=== PATIENT | female | born 2005 | race African-American/Black ===

== ENCOUNTER 2025-04-20 12:57 | Emergency (ER) | payer BC, SELFPAY ==
[2025-04-20] VITALS (7 sets, daily range): BP systolic 120–125; BP diastolic 68–72; PULSE 53–108; RESP 16–20; TEMP 36.4; O2SAT 98–100
--- NOTE | ~2025-04-20 | US_ITS ---
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 Findings: Uterus anteverted 12.6 x 7.8 x 7.9 cm. Single live intrauterine in breech presentation, heart rate 159, the fetus corresponds to crown-rump length 5.5 cm, 12 weeks and 1 day. Placenta is forming posteriorly, there is no gross abruption. The placenta appears unremarkable. Right ovary 2.9 x 1 x 2.3 cm, left ovary 4.2 x 2.2 x 2.6 cm. No adnexal mass. No free fluid IMPRESSION: Single live intrauterine detailed above. No acute process is identified. Reviewed, dictated and finalized at location P. [facility]
--- OUTSIDE RECORDS SUMMARY | 2025-04-20 13:13 | XMS_ITS | Clinical Summary ---
Author Organization [facility] Address [address] [place] [address] Care Team Providers Care Ichthyologist Name Role Phone No, Physician Primary Care Provider [phone] Allergies No known active allergies Active Problems Problem Noted Date Diagnosed Date Bleeding in early 12/17/2023 Overview (12/25/2023): Telephone Number Vitor Mccraymagayathri Fox [phone] (home) Home Yes [] PUL Card Given Working Diagnosis: possible early SAB Date presented: 12/19/23 Brief HPI: 18 y.o. at unknown gestational age presents with spotting. +home UPT, neg UPT in [facility]. Hcg 38.1 on 12/14. Patient reports passing the on the evening of 12/16. Ultrasound: none performed 12/14: Initial presentation, 38.1 12/16: Called pt, endorses heavy VB, will present to [facility] 12/18: Pt states that she felt like she passed the on the evening on 12/16. Still having some VB. States that she does not have insurance and does not want to get a quant done because of this. Wants to be setup with f/u with [facility] to establish care. Have referred to medicaid specialist. 12/19: left VM, informed pt to take home upt next week and discussed her referrals 12/23: left VM, my chart messaged 12/24: left VM, sending certified letter, signing out of bb per attending Rh Status: A Positive [] Rhogam Given Beta Trend: Lab Results Component Value Date HCG 38.1 (H) 12/15/2023 PLAN Next beta due: home upt 12/23 Contraception: NA Does the patient have insurance? If not, make clinic appointment for [place] medicaid specialist OR refer to [place] medicaid office. [x] Signed out with attending and okay to remove from beta book. Attending Name: Julius Comments Yes Encounters Date Type Department Care Team Description 03/13/2025 Documentation [facility] Social Work [address] [place] [id number] Luiz Barryra 03/12/2025 7:51 AM CDT - 03/12/2025 12:16 PM CDT Emergency [address] [address] Bacterial vaginosis (Primary Dx); Trichomonas vaginitis; Vaginal candidiasis; Bleeding in early Discharge Disposition: Discharge to home or self care 03/09/2025 5:10 PM CDT Lab [facility] [address] [place] [id number] Threatened miscarriage in early 03/07/2025 10:14 AM CDT - 03/07/2025 1:50 PM CDT Emergency [address] [address] Vaginal bleeding in , first trimester (Primary Dx); Threatened miscarriage in early ; Subchorionic hemorrhage of placenta in first trimester Discharge Disposition: Discharge to home or self care from Last 3 Months Social History Tobacco Use Types Packs/Day Years Used Date Smoking Tobacco: Never Assessed Personal Safety Answer Date Recorded Have you ever been in or are you currently in a harmful physical or emotional relationship or is someone making you feel afraid or unsafe? Denies 03/12/2025 Comments Yes Sex and Gender Information Value Date Recorded Sex Assigned at Not on file Legal Sex Female 7:35 PM CDT Gender Identity Not on file Sexual Orientation Not on file Obstetrics History Para Term AB IAB SAB Ectopic Multiple Livin g Live Births 2 Date Outcome GA Total Labor Labor/2nd/3rd Weight Sex Type Anes PTL Linda A1 A5 Name Clin Current Last Filed Vital Signs Vital Sign Reading Time Taken Comments Blood Pressure 128/67 03/12/2025 12:00 PM CDT Pulse 78 03/12/2025 12:00 PM CDT Temperature 36.6 C (97.9 F) 03/12/2025 7:31 AM CDT Respiratory Rate 18 03/12/2025 12:00 PM CDT Oxygen Saturation 100% 03/12/2025 12:00 PM CDT Inhaled Oxygen Concentration - - Weight 94 kg (207 lb 3.7 oz) 03/12/2025 7:37 AM CDT Height 165.1 cm (5' 5) 03/12/2025 7:31 AM CDT Body Mass Index 34.49 03/12/2025 7:31 AM CDT Plan of Treatment Health Maintenance Due Date Last Done Comments Depression Screening 2004 Hepatitis C Screening 2004 DTaP/Tdap/Td Vaccine (1 - Tdap) 10/06/2015 Varicella Vaccines (1 of 2 - 13+ 2-dose series) 2017 HPV Vaccines (1 - 3-dose series) 10/06/2019 Meningococcal B Vaccine (1 o f 2 - Standard) 2020 Hepatitis B Screening 2022 Regular Well Visit/Exam 18-64 2022 Influenza Vaccine (#1) 2025 Meningococcal Vaccine Aged Out No nickie elvira eligible based on patient's age to complete this topic Pneumococcal vaccine <65 Aged Out No longer eligible based on patient's age to complete this topic Procedures Procedure Name Priority Date/Time Associated Diagnosis Comments N. GONORRHOEAE/C. TRACHOMATIS AMPLIFICATION STAT 03/12/2025 9:40 AM CDT VAGINITIS PANEL Routine 03/12/2025 9:40 AM CDT POCT HCG, URINE Routine 03/12/2025 7:54 AM CDT URINALYSIS, MICROSCOPIC ONLY STAT 03/12/2025 7:53 AM CDT URINALYSIS AND REFLEX TO MICROSCOPIC AND CULTURE STAT 03/12/2025 7:53 AM CDT EGFR STAT 03/12/2025 7:47 AM CDT DIFFERENTIAL AUTO STAT 03/12/2025 7:4 7 AM CDT COMPREHENSIVE METABOLIC PANEL STAT 03/12/2025 7:47 AM CDT ABO/RH STAT 03/12/2025 7:47 AM CDT HCG, BLOOD, QUANTITATIVE STAT 03/12/2025 7:47 AM CDT CBC WITH AUTO DIFFERENTIAL STAT 03/12/2025 7:47 AM CDT HCG, BLOOD, QUANTITATIVE Routine 03/09/2025 5:43 PM CDT Threatened miscarriage in early US OB TRANSVAGINAL ED 03/07/2025 12 :49 PM CDT B ABO / RH CONFIRMATION TESTING STAT 03/07/2025 11:12 AM CDT URINALYSIS, MICROSCOPIC ONLY STAT 03/07/2025 10:51 AM CDT URINE CULTURE STAT 03/07/2025 10:51 AM CDT URINALYSIS AND REFLEX TO MICROSCOPIC AND CULTURE STAT 03/07/2025 10:51 AM CDT EGFR STAT 03/07/2025 10:06 AM CDT DIFFERENTIAL AUTO STAT 03/07/2025 10: 06 AM CDT ABO/RH STAT 03/07/2025 10:06 AM CDT HCG, BLOOD, QUANTITATIVE STAT 03/07/2025 10:06 AM CDT CBC WITH AUTO DIFFERENTIAL STAT 03/07/2025 10:06 AM CDT COMPREHENSIVE METABOLIC PANEL STAT 03/07/2025 10:06 AM CDT from Last 3 Months Results * N. gonorrhoeae/C. trachomatis Amplification Vaginal (03/12/2025 9:40 AM CDT) Pathologist [facility] C. trachomatis Not Detected Not Detected N. gonorrhoeae Not Detected Not Detected [facility] Comment: Interpretive Data This assay detects Chlamydia trachomatis and Neisseria gonorrhoeae by nucleic acid amplification testing (NAAT). This assay has been cleared by the [place] Food and Drug administration. The performance characteristics of this test have been verified by the [facility]. The performance characteristics of this test have not been evaluated in individuals less than 14 years of age. Current Interpretive Data last revised 2023. Vaginal (None) 03/12/2025 9: 40 AM CDT 03/12/2025 9:42 AM CDT Janny VU LAB MICROBIOLOGY - GENERAL OR DERABLES Final Result [facility] [address] [facility] Department [place] [address] * (ABNORMAL) Vaginitis panel Vaginal (03/12/2025 9:40 AM CDT) Pathologist [facility] Bacterial Vaginosis Detected(A) Not Detected Comment:The BV organism targ ets of this test can be commensal in women; results should be considered in conjunction with clinical presentation to determine the disease status. Cheryl group Detected(A) Not Detected [facility] Comment:Cheryl species can be present as commensal organisms in women; results should be considered in conjunction with clinical presentation to determine the disease status. Cheryl glabrata/ krusei Not Detected Not Detected [facility] Trichomonas DNA Detected(A) Not Detected [facility] Vaginal 03/12/2025 9:40 AM CDT 03/12/2025 9:42 AM CDT Narrative [facility] - 03/12/2025 10:47 AM CDT The [employer] Xpert Xpress MVP test detects DNA targets from anaerobic bacteria associated with bacterial vaginosis, Cheryl species associated with vulvovaginal candidiasis, and Trichomonas vaginalis by nucleic acid amplification testing (NAAT). Results should be interpreted in conjunction with other clinical data. This test cannot be used to assess therapeutic success or failure because target nucleic acids may persist following antimicrobial therapy. This test has been cleared by the [place] Food and Drug Administration to aid in the diagnosis of vaginal infections in symptomatic women ages 14 and older. The performance characteristics of this test have been verified by the [facility]. The [employer] Xpert Xpress MVP test detects DNA targets from anaerobic bacteria associated with bacterial vaginosis, Cheryl species associated with vulvovaginal candidiasis, and Trichomonas vaginalis by nucleic acid amplification testing (NAAT). Results should be interpreted in conjunction with other clinical data. This test cannot be used to assess therapeutic success or failure because target nucleic acids may persist following antimicrobial therapy. This test has been cleared by the [facility] Food and Drug Administration to aid in the diagnosis of vaginal infections in symptomatic women ages 14 and older. The performance characteristics of this test have been verified by the [facility]. Janny VU LAB MICROBIOLOGY - GENERAL OR DERABLES Final Result [facility] [address] [facility] Department [place] [address] * (ABNORMAL) POCT hCG, urine (03/12/2025 7:54 AM CDT) HCG, ur, POC Positive(A) Negative Lot Number [id number] QC Backgroud Clear Acceptable QC Control Line Acceptable Urine 03/12/2025 7:54 AM CDT Ariel Gao DO POINT OF CARE TEST ORDERABL ES Final Result * (ABNORMAL) Urinalysis reflex to microscopic and culture Urine (03/12/2025 7:53 AM CDT) Color, ur Yellow Yellow Clarity, ur Clear Clear [facility] Specific gravity, ur 1.014 1.003 - 1.030 [facility] pH, urine 7.5 [facility] Comment: Interpretive Data U rine pH is affected by diet, medications, systemic acid-base disturbances, and renal tubular function. pH may affect urinary stone formation. For example, urine pH below 6.0 may help reduce the tendency for calcium phosphate stones and pH greater than 6.0 may reduce the tendency for uric acid stone formation. Source: [facility] Current Interpretive Data was last revised on 2017 Protein, ur ql Negative Negative [facility] Glucose, ur ql Negative Negative [facility] Ketones, ur Negative Negative [facility] Bilirubin, ur Negative Negative [facility] Blood, ur 2+(A) Negative [facility] Urobilinogen, ur <2.0 <2.0 mg/dL [facility] Nitrite, ur Negative Negative [facility] Leukocyte esterase, ur 2+(A) Negative [facility] UA reflex comment Reflex to microscopic UA will be performed. [facility] Urine 03/12/2025 7:53 AM CDT 03/12/2025 7:57 AM CDT Ariel Gao DO LAB MICROBIOLOGY - GENERAL ORDERABLES Final Result Performing Organization Address [facility] Co de Phone Number [address] [place] [address] * Urinalysis, microscopic only (03/12/2025 7:53 AM CDT) WBC, ur 0-5 0 - 5 /HPF RBC, ur 0-2 0 - 2 /HPF [facility] Epithelial cells, squamous, ur 1-5 0 - 5 /HPF [facility] Culture Reflex Comment Reflex conditions for urine culture (WBC >10) not met. [facility] Urine 03/12/2025 7:53 AM CDT 03/12/2025 7:57 AM CDT Ariel Gao DO LAB URINE ORDERABLES Final Result Performing Organization Address City/[facility] Co de Phone Number [address] [place] [address] * eGFR (03/12/2025 7:47 AM CDT) eGFR >90 >=60 mL/min/1. 73 m2 Comment: Interpretive Data Reference Interval Normal >/= 90 mL/min/1.73m2 Mildly decreased* 60 - 89 mL/min/1.73m2 Mildly to moderately decreased 45 - 59 mL/min/1.73m2 Moderately to severely decreased 30 - 44 mL/min/1.73m2 Severely decreased 15 - 29 mL/min/1.73m2 Kidney Failure < 15 mL/min/1.73m2 *Relative to young adult level Estimated glomerular filtration rate is determined by the 2020 CKD-EPI equation recommended by the National Kidney Foundation (A Unifying Approach to GFR Estimation: Recommendations of the NKF-ASK Task Force on Reassessing the Inclusion of Race in Diagnosing Kidney Disease, JASN 2020). The CKD-EPI equation should not be used for patients with unstable renal function and has not been validated in children and those over 70. Current interpretive data was last reviewed 2021. Blood 03/12/2025 7:47 AM CDT 03/12/2025 7:51 AM CDT us Ariel Gao DO LAB BLOOD ORDERABLES Final Result [facility] [address] [facility] Department of Laboratories [place], [place] [id number] * Differential, auto (03/12/2025 7:47 AM CDT) Neutrophil abs 4.60 1.50 - 6.50 K/cumm Imm gran abs 0.03 0.00 - 0.10 K/cumm [facility] Lymphocyte abs 2.96 0.80 - 3.30 K/cumm [facility] Monocyte abs 0.48 0.20 - 0.80 K/cumm [facility] Eosinophil abs 0.09 0.00 - 0.50 K/cumm [facility] Basophil abs 0.05 0.00 - 0.10 K/cumm [facility] Neutrophil pct 56.0 % [facility] Comment: Interpretive Data Percent cell count reference ranges are not reported, since discordance with absolute values may lead to misinterpretation of CBC data. Current Interpretive Data was last revised on 2017. Imm gran pct 0.4 % [facility] Comment: Interpretive Data Percent cell count reference ranges are not reported, since discordance with absolute values may lead to misinterpretation of CBC data. Current Interpretive Data was last revised on 2017. Lymphocyte pct 36.1 % [facility] Comment: Interpretive Data Percent cell count reference ranges are not reported, since discordance with absolute values may lead to misinterpretation of CBC data. Current Interpretive Data was last revised on 2017. Monocyte pct 5.8 % [facility] Comment: Interpretive Data Percent cell count reference ranges are not reported, since discordance with absolute values may lead to misinterpretation of CBC data. Current Interpretive Data was last revised on 2017. Eosinophil pct 1.1 % [facility] Comment: Interpretive Data Percent cell count reference ranges are not reported, since discordance with absolute values may lead to misinterpretation of CBC data. Current Interpretive Data was last revised on 2017. Basophil pct 0.6 % [facility] Comment: Interpretive Data Percent cell count reference ranges are not reported, since discordance with absolute values may lead to misinterpretation of CBC data. Current Interpretive Data was last revised on 2017. Blood 03/12/2025 7:47 AM CDT 03/12/2025 7:51 AM CDT us Ariel Gao DO LAB BLOOD ORDERABLES Final Result [place] [address] [facility] Department [place] [address] * CBC with auto differential (03/12/2025 7:47 AM CDT) WBC 8.21 3.80 - 9.90 K/cumm Hgb 12.3 11.9 - 15.5 g/dL [facility] Hct 37.7 35.6 - 45.5 % [facility] Plt 218 150 - 400 K/cumm [facility] MPV 11.9 9.1 - 12.3 fL [facility] RBC 4.08 3.90 - 5.20 M/cumm [facility] MCV 92.4 81.3 - 96.4 fL [facility] MCH 30.1 27.1 - 33.3 pg [facility] MCHC 32.6 32.3 - 35.7 g/dL [facility] RDW CV 13.1 11.1 - 14.9 % [facility] RDW SD 44.3 35.7 - 48.1 fL [facility] NRBC abs 0.00 0.00 - 0.01 K/cumm [facility] Blood Venous blood specimen / Unknown 03/12/2025 7:47 AM CDT 03/12/2025 7:51 AM CDT Ariel Gao [facility] BLOOD ORDERABLES Final Result Performing Organization Address [facility] de Phone Number [address] [place] [address] * ABO/Rh (03/12/2025 7:47 AM CDT) ABO/Rh A Positive Blood 03/12/2025 7:47 AM CDT 03/12/2025 7:51 AM CDT Ariel Gao [facility] BLOOD BANK TEST ORDERAB LES Final Result Performing Organization Address [facility] de Phone Number [address] [address] * (ABNORMAL) hCG, blood, quantitative (03/12/2025 7:47 AM CDT) Pathologist [facility] hCG, quant 38,305.0( H) 0.0 - 5.0 [facility]/L Comment: Interpretive Data Male: < 5 IU/L Non- premenopausal Female: <5 IU/L The Manny hCG Beta Quant assay procedure was used. Results from different manufacturers or methods may not be comparable. Serial testing should be performed using the same method. Interpretive Data was last revised on 2023 Blood 03/12/2025 7:47 AM CDT 03/12/2025 7:51 AM CDT Ariel Gao [facility] BLOOD ORDERABLES Final Result Performing Organization Address [facility] Co de Phone Number [address] [place] [address] * (ABNORMAL) Comprehensive metabolic panel (03/12/2025 7:47 AM CDT) Pathologist [facility] Sodium 135 135 - 145 mmol/L Potassium, pl 3.7 3.3 - 4.9 mmol/L [facility] Chloride 105 97 - 110 mmol/L [facility] CO2 22 22 - 32 mmol/L [facility] Anion gap 8 2 - 15 mmol/L [facility] BUN 7 6 - 25 mg/dL [facility] Creatinine 0.59(L) 0.60 - 1.10 mg/dL [facility] Glucose 96 70 - 199 mg/dL [facility] Comment: Interpretive Data Fasting glucose >/= 126 mg/dl is diagnostic for diabetes. Fasting is defined as no caloric intake for at least 8 hours. Fasting glucose between 100 mg/dl to 125 mg/dl is diagnostic of prediabetes. In a patient with classic symptoms of hyperglycemia or hyperglycemic crisis, a random glucose >/= 200 mg/dl is diagnostic for diabetes. In the absence of unequivocal hyperglycemia, results should be confirmed by repeat testing. The classification and Diagnosis of Diabetes Diabetes Care 2021; 46: S19-S40. Current interpretive data was last revised 2022. Calcium 8.6 8.5 - 10.3 mg/dL [facility] Bilirubin, total 0.4 0.1 - 1.2 mg/dL [facility] Protein, pl 6.4(L) 6.5 - 8.5 g/dL [facility] Albumin 4.0 3.5 - 5.0 g/dL [facility] Alk phos 58 40 - 130 Units/L [facility] ALT 16 7 - 45 Units/L [facility] AST 21 10 - 45 Units/L [facility] Blood 03/12/2025 7:47 AM CDT 03/12/2025 7:51 AM CDT us Ariel Gao DO LAB BLOOD ORDERABLES Final Result [facility] [address] [facility] Department [place] [address] * (ABNORMAL) hCG, blood, quantitative (03/09/2025 5:43 PM CDT) Pathologist [facility] hCG, quant 25,930.0( H) 0.0 - 5.0 [facility] Comment: Interpretive Data Male: < 5 IU/L Non- premenopausal Female: <5 IU/L The [employer]anny hCG Beta Quant assay procedure was used. Results from different manufacturers or methods may not be comparable. Serial testing should be performed using the same method. Interpretive Data was last revised on 2023 Testing performed by: [facility], [address] [place] [address]., [id number] Blood 03/09/2025 5:43 PM CDT 03/09/2025 6:19 PM CDT us Kandy VU LAB BLOOD ORDERABLES Final Resu lt [facility] [address] [facility] Department [place] [address] * US Ob Transvaginal (03/07/2025 12:49 PM CDT) Anatomical Region Laterality Modality Abdomen N/A Ultrasound 03/07/2025 12:5 0 PM CDT Narrative 03/07/2025 12:57 PM CDT EXAM DESCRIPTION: US OB TRANSVAGINAL REASON FOR STUDY: Light vaginal bleeding for 1 day. Beta HCG 16,265 TECHNIQUE: Transvaginal images acquired of the pelvis. COMPARISON: No prior. FINDINGS: Clinical gestational age: 5 weeks 3 days Clinical estimated Due Date: 11/04/2025 Intrauterine gestational sac: Present Yolk sac: Present Subchorionic bleed: Possible small subchorionic hemorrhage. See image 50 of 54 and adjacent images. This measures 0.8 x 0.6 x 0.5 cm. Placenta: Not identified [place]-rump length: Small crown-rump length measuring 0.3 cm. heart rate: 93 bpm Gestational age by this ultrasound: 5 weeks 6 days JOEY by this ultrasound: 11/01/2025 Uterus: Maternal uterus otherwise appears normal measuring 8.8 x 5.4 x 4.3 cm. Right Ovary/Adnexa: The right ovary measures 3.4 x 1.8 x 1.2 cm. There is documentation of color Doppler flow in the right ovary. The right ovary appears unremarkable. No adnexal mass. Left Ovary/Adnexa: The left ovary measures 3.1 x 2 x 1.8 cm. There is documentation of color Doppler flow in the left ovary. Corpus luteum cyst favored measuring 1.7 x 1.3 x 1.3 cm. Free Fluid: None. IMPRESSION: 1. Early intrauterine measuring 5 weeks 6 days with estimated date of delivery of 11/01/2025. 2. Small subchorionic hemorrhage measuring 0.8 x 0.6 x 0.5 cm. Follow-up ultrasound is recommended in 1 week. THIS IS AN ELECTRONICALLY VERIFIED FINAL REPORT 03/07/2025 12:57 PM - Electronically signed by John COLIN T: Report ID: [id number] Reading Location: [place] [address] Procedure Note John Herrera MD - 03/07/2025 EXAM DESCRIPTION: US OB TRANSVAGINAL REASON FOR STUDY: Light vaginal bleeding for 1 day. Beta HCG 16,265 TECHNIQUE: Transvaginal images acquired of the pelvis. COMPARISON: No prior. FINDINGS: Clinical gestational age: 5 weeks 3 days Clinical estimated Due Date: 11/04/2025 Intrauterine gestational sac: Present Yolk sac: Present Subchorionic bleed: Possible small subchorionic hemorrhage. See image50 of 54 and adjacent images. This measures 0.8 x 0.6 x 0.5 cm. Placenta: Not identified [place]-rump length: Small crown-rump length measuring 0.3 cm. heart rate: 93 bpm Gestational age by this ultrasound: 5 weeks 6 days JOEY by this ultrasound: 11/01/2025 Uterus: Maternal uterus otherwise appears normal measuring 8.8 x 5.4 x 4.3cm. Right Ovary/Adnexa: The right ovary measures 3.4 x 1.8 x 1.2 cm. Thereis documentation of color Doppler flow in the right ovary. The right ovary appears unremarkable. No adnexal mass. Left Ovary/Adnexa: The left ovary measures 3.1 x 2 x 1.8 cm. There is documentation of color Doppler flow in the left ovary. Corpus luteum cyst favored measuring 1.7 x 1.3 x 1.3 cm. Free Fluid: None. IMPRESSION: 1. Early intrauterine measuring 5 weeks 6 days with estimateddate of delivery of 11/01/2025. 2. Small subchorionic hemorrhage measuring 0.8 x 0.6 x 0.5 cm.Follow-up ultrasound is recommended in 1 week. THIS IS AN ELECTRONICALLY VERIFIED FINAL REPORT 03/07/2025 12:57 PM - Electronically signed by John COLIN T: Report ID: [id number] Reading Location: [place] [address] Kandy VU IMG OB US PROCEDURES Final Resu lt * ABO / Rh Confirmation Testing (03/07/2025 11:12 AM CDT) ABO/Rh Confirmation A Positive [facility] Blood 03/07/2025 11:1 2 AM CDT 03/07/2025 11:16 AM CDT Kandy VU LAB BLOOD ORDERABLES Final Resu lt [facility] [address] [facility] Department [place] [address] MHB * (ABNORMAL) Urinalysis reflex to microscopic and culture Urine (03/07/2025 10:51 AM CDT) Color, ur Straw Yellow Clarity, ur Clear Clear [facility] Specific gravity, ur 1.005 1.003 - 1.030 [facility] pH, urine 6.5 [facility] Comment: Interpretive Data U rine pH is affected by diet, medications, systemic acid-base disturbances, and renal tubular function. pH may affect urinary stone formation. For example, urine pH below 6.0 may help reduce the tendency for calcium phosphate stones and pH greater than 6.0 may reduce the tendency for uric acid stone formation. Source: [facility] [employer] Current Interpretive Data was last revised on 2017 Protein, ur ql Negative Negative [facility] Glucose, ur ql Negative Negative [facility] Ketones, ur Negative Negative [facility] Bilirubin, ur Negative Negative [facility] Blood, ur Negative Negative [facility] Urobilinogen, ur <2.0 <2.0 mg/dL [facility] Nitrite, ur Negative Negative [facility] Leukocyte esterase, ur 2+(A) Negative [facility] UA reflex comment Reflex to microscopic UA will be performed. [facility] Urine 03/07/2025 10:5 1 AM CDT 03/07/2025 10:56 AM CDT Kandy VU LAB MICROBIOLOGY - GENERAL ORDE RABLES Final Result Performing Organization Address [facility] de Phone Number [address] [place] [address] * (ABNORMAL) Urinalysis, microscopic only (03/07/2025 10:51 AM CDT) WBC, ur 11-20(A) 0 - 5 /HPF RBC, ur 0-2 0 - 2 /HPF [facility] Epithelial cells, squamous, ur 1-5 0 - 5 /HPF [facility] Bacteria, ur Trace(A) [facility] Mucous, ur Present(A) [facility] Culture Reflex Comment Reflex to urine culture will be performed. [facility] Urine 03/07/2025 10:5 1 AM CDT 03/07/2025 10:56 AM CDT Kandy [facility] LAB URINE ORDERABLES Final Resu lt Performing Organization Address City/[facility] Co de Phone Number [address] [place] [address] * Urine culture Urine (03/07/2025 10:51 AM CDT) Report Final Report: Less than 100,000 colonies/mL (clinically insignificant growth based on current clinical standards) Comment:Testing performed by : [facility], [address] [facility], [place]., [address] Organism (CLINICALLY INSIGNIFICANT GROWTH [facility] Urine 03/07/2025 10:5 1 AM CDT 03/07/2025 6:19 PM CDT Narrative TIFFANY - 03/08/2025 7:25 PM CDT Urine culture reflexed based upon urinalysis results. Testing performed by [facility] Microbiology Laboratory ([phone]) [facility] MICROBIOLOGY - GENERAL ORDE RABLES Final Result Performing Organization Address City/[facility]/ZIP Co de Phone Number [address] [place] [address] * eGFR (03/07/2025 10:06 AM CDT) Pathologist [facility] eGFR >90 >=60 mL/min/1. 73 m2 Comment: Interpretive Data Reference Interval Normal >/= 90 mL/min/1.73m2 Mildly decreased* 60 - 89 mL/min/1.73m2 Mildly to moderately decreased 45 - 59 mL/min/1.73m2 Moderately to severely decreased 30 - 44 mL/min/1.73m2 Severely decreased 15 - 29 mL/min/1.73m2 Kidney Failure < 15 mL/min/1.73m2 *Relative to young adult level Estimated glomerular filtration rate is determined by the 2020 CKD-EPI equation recommended by the National Kid[employer] (A Unifying Approach to GFR Estimation: Recommendations of the NKF-ASK Task Force on Reassessing the Inclusion of Race in Diagnosing Kidney Disease, JASN 202). The CKD-EPI equation should not be used for patients with unstable renal function and has not been validated in children and those over 70. Current interpretive data was last reviewed 2021. Blood 03/07/2025 10:0 6 AM CDT 03/07/2025 10:11 AM CDT Kandy [facility] LAB BLOOD ORDERABLES Final Resu lt Performing Organization Address City/[facility]/ZIP Co de Phone Number [address] Department [place] [address] * Differential, auto (03/07/2025 10:06 AM CDT) Neutrophil abs 4.39 1.50 - 6.50 K/cumm Imm gran abs 0.01 0.00 - 0.10 K/cumm [facility] Lymphocyte abs 3.30 0.80 - 3.30 K/cumm [facility] Monocyte abs 0.48 0.20 - 0.80 K/cumm [facility] Eosinophil abs 0.06 0.00 - 0.50 K/cumm [facility] Basophil abs 0.05 0.00 - 0.10 K/cumm [facility] Neutrophil pct 53.0 % [facility] Comment: Interpretive Data Percent cell count reference ranges are not reported, since discordance with absolute values may lead to misinterpretation of CBC data. Current Interpretive Data was last revised on 2017. Imm gran pct 0.1 % [facility] Comment: Interpretive Data Percent cell count reference ranges are not reported, since discordance with absolute values may lead to misinterpretation of CBC data. Current Interpretive Data was last revised on 2017. Lymphocyte pct 39.8 % [facility] Comment: Interpretive Data Percent cell count reference ranges are not reported, since discordance with absolute values may lead to misinterpretation of CBC data. Current Interpretive Data was last revised on 2017. Monocyte pct 5.8 % [facility] Comment: Interpretive Data Percent cell count reference ranges are not reported, since discordance with absolute values may lead to misinterpretation of CBC data. Current Interpretive Data was last revised on 2017. Eosinophil pct 0.7 % [facility] Comment: Interpretive Data Percent cell count reference ranges are not reported, since discordance with absolute values may lead to misinterpretation of CBC data. Current Interpretive Data was last revised on 2017. Basophil pct 0.6 % [facility] Comment: Interpretive Data Percent cell count reference ranges are not reported, since discordance with absolute values may lead to misinterpretation of CBC data. Current Interpretive Data was last revised on 2017. Blood 03/07/2025 10:0 6 AM CDT 03/07/2025 10:11 AM CDT Kandy [facility] LAB BLOOD ORDERABLES Final Resu lt [address] [place] [address] * CBC with auto differential (03/07/2025 10:06 AM CDT) WBC 8.29 3.80 - 9.90 K/cumm Hgb 13.0 11.9 - 15.5 g/dL [facility] Hct 39.5 35.6 - 45.5 % [facility] Plt 242 150 - 400 K/cumm [facility] MPV 11.9 9.1 - 12.3 fL [facility] RBC 4.31 3.90 - 5.20 M/cumm [facility] MCV 91.6 81.3 - 96.4 fL [facility] MCH 30.2 27.1 - 33.3 pg [facility] MCHC 32.9 32.3 - 35.7 g/dL [facility] RDW CV 13.1 11.1 - 14.9 % [facility] RDW SD 44.0 35.7 - 48.1 fL [facility] NRBC abs 0.00 0.00 - 0.01 K/cumm [facility] Blood 03/07/2025 10:0 6 AM CDT 03/07/2025 10:11 AM CDT us Kandy [facility]U LAB BLOOD ORDERABLES Final Resu lt Performing Organization Address City/[facility]/ZIP Co de Phone Number [address] [address] * ABO/Rh (03/07/2025 10:06 AM CDT) Pathologist [facility] ABO/Rh A Positive Blood 03/07/2025 10:0 6 AM CDT 03/07/2025 10:11 AM CDT us Kandy [facility] LAB BLOOD BANK TEST ORDERABLES Final Result Performing Organization Address City/[facility]/ZIP Co de Phone Number [address] [place] [address] * (ABNORMAL) hCG, blood, quantitative (03/07/2025 10:06 AM CDT) hCG, quant 16,265.0( H) 0.0 - 5.0 IUnits/L Comment: Interpretive Data Male: < 5 IU/L Non- premenopausal Female: <5 IU/L The Manny hCG Beta Quant assay procedure was used. Results from different manufacturers or methods may not be comparable. Serial testing should be performed using the same method. Interpretive Data was last revised on 2023 Blood 03/07/2025 10:0 6 AM CDT 03/07/2025 10:11 AM CDT us Kandy [facility]U LAB BLOOD ORDERABLES Final Resu lt [facility] [address] [facility] Department [place] [address] * (ABNORMAL) Comprehensive metabolic panel (03/07/2025 10:06 AM CDT) Pathologist [facility] Sodium 135 135 - 145 mmol/L Potassium, pl 3.8 3.3 - 4.9 mmol/L [facility] Chloride 104 97 - 110 mmol/L [facility] CO2 21(L) 22 - 32 mmol/L [facility] Anion gap 10 2 - 15 mmol/L [facility] BUN 9 6 - 25 mg/dL [facility] Creatinine 0.64 0.60 - 1.10 mg/dL [facility] Glucose 92 70 - 199 mg/dL [facility] Comment: Interpretive Data Fasting glucose >/= 126 mg/dl is diagnostic for diabetes. Fasting is defined as no caloric intake for at least 8 hours. Fasting glucose between 100 mg/dl to 125 mg/dl is diagnostic of prediabetes. In a patient with classic symptoms of hyperglycemia or hyperglycemic crisis, a random glucose >/= 200 mg/dl is diagnostic for diabetes. In the absence of unequivocal hyperglycemia, results should be confirmed by repeat testing. The classification and Diagnosis of Diabetes Diabetes Care 2021; 46: S19-S40. Current interpretive data was last revised 2022. Calcium 9.2 8.5 - 10.3 mg/dL [facility] Bilirubin, total 0.5 0.1 - 1.2 mg/dL [facility] Protein, pl 7.1 6.5 - 8.5 g/dL [facility] Albumin 4.3 3.5 - 5.0 g/dL [facility] Alk phos 64 40 - 130 Units/L [facility] ALT 15 7 - 45 Units/L [facility] AST 22 10 - 45 Units/L [facility] Blood 03/07/2025 10:0 6 AM CDT 03/07/2025 10:11 AM CDT us Kandy [facility]U LAB BLOOD ORDERABLES Final Resu lt TIFFANY GLYNN [address] [facility] Department [place] [address] from Last 3 Months Insurance Care Teams Ichthyologist Relationship Specialty Start Date End Date No, Physician PCP - General 12/15/23
[2025-04-20 16:00] LABS: BEDSIDEPREGUCG Positive (Negative)
[2025-04-20 16:02] LABS: Hematocrit 36.7 % (37.0-47.0); Hemoglobin 12.2 g/dL (12.0-15.0); Immature Granulocyte Percent A 0.4 % (0-0.5); Lymphocytes Absolute Auto 3.80 K/mm3 (0.9-3.2); Mean Corpuscular HGB Conc 33.2 g/dl (32-36); Mean Corpuscular Hemoglobin 30.2 pg (26-34); Mean Corpuscular Volume 90.8 fl (80-100); Nucleated Red Blood Cells Absolute Auto 0.000 K/mm3 (0.0-0.012); Nucleated Red Blood Cells Perc 0.0 % (0.0-0.2); Platelet Count Result 222 k/mm3 (150-375); Red Blood Count 4.04 M/mm3 (4.2-5.4); White Blood Count 11.1 K/mm3 (4.5-10.0)
[2025-04-20 16:06] LABS: Add Urine Microscopic? YES; Appearance Urine Clear (Clear); Glucose Urine UA Negative (Negative); Leukocyte Esterase Ur Negative LEU/UL (Negative); Nitrate Urine Negative (Negative); Non Pathogenic Casts 0-2; Specific Grav Ur 1.009 (1.001-1.035)
[2025-04-20 16:11] LABS: Alanine Aminotransferase 17 U/L (6-35); Albumin Level 3.9 g/dL (3.5-5.1); Alkaline Phosphatase 59 U/L (38-126); Anion Gap 6 mmol/L (4-12); Aspartate Amino Transferase 32 U/L (14-36); Bilirubin,Total 0.3 mg/dL (0.2-1.3); Blood Urea Nitrogen 6 mg/dL (7-17); Calcium 8.9 mg/dL (8.4-10.2); Carbon Dioxide 22 mmol/L (22-30); Chloride 106 mmol/L (98-107); Estimated CRCL calculation 156 ml/min; Estimated Glomerular Filt Rate > 60; Glucose 74 mg/dL (65-110); Potassium 3.5 mmol/L (3.4-5.0); Sodium 134 mmol/L (137-145); Total Protein 6.9 g/dL (6.3-8.2)
--- OUTSIDE RECORDS SUMMARY | 2025-04-20 16:27 | XMS_ITS | Clinical Summary ---
Author Organization [facility] Address [address] [place] [address] Care Team Providers Care Regional Facilities Manager Name Role Phone No, Physician Primary Care Provider Allergies No known active allergies Active Problems Problem Noted Date Diagnosed Date Bleeding in early 12/17/2023 Overview (12/25/2023): Telephone Number Vitor Mccraymagayathri Fox [phone] (home) Home Yes [] PUL Card Given Working Diagnosis: possible early SAB Date presented: 12/19/23 Brief HPI: 18 y.o. at unknown gestational age presents with spotting. +home UPT, neg UPT in [facility]. Hcg 38.1 on 12/14. Patient reports passing the on the evening of 12/16. Ultrasound: none performed 12/14: Initial presentation, 38.1 12/16: Called pt, endorses heavy VB, will present to [facility] 12/18: Pt states that she felt like she passed the on the evening on 12/16. Still having some VB. States that she does not have insurance and does not want to get a quant done because of this. Wants to be setup with f/u with [facility] res clinic to establish care. Have referred [...] for [place] medicaid specialist OR refer to [place] medicaid office. [x] Signed out with attending and okay to remove from beta book. Attending Name: Julius Comments Yes Encounters Date Type Department Care Team Description 03/13/2025 Documentation [facility] Social Work [address] [place] [id number] Luiz Barryra 03/12/2025 7:51 AM CDT - 03/12/2025 12:16 PM CDT Emergency [address] [address] Bacterial vaginosis (Primary Dx); Trichomonas vaginitis; Vaginal candidiasis; Bleeding in early Discharge Disposition: Discharge to home or self care 03/09/2025 5:10 PM CDT Lab [facility] [address] [place] [id number] Threatened miscarriage in early 03/07/2025 10:14 AM CDT - 03/07/2025 1:50 PM CDT Emergency [address] [address] Vaginal bleeding in , first trimester (Primary [...] N. gonorrhoeae Not Detected Not Detected [facility] Comment: Interpretive Data This assay detects Chlamydia trachomatis and Neisseria gonorrhoeae by nucleic acid amplification testing (NAAT). This assay has been cleared by the [place] Food and Drug administration. The performance characteristics of this test have been verified by the [facility]. The performance characteristics of this test have not been evaluated in individuals less than 14 years of age. Current Interpretive Data last revised 2023. Vaginal (None) 03/12/2025 9: 40 AM CDT 03/12/2025 9:42 AM CDT Janny VU LAB MICROBIOLOGY - GENERAL OR DERABLES Final Result [facility] [address] [facility] Department [place] [address] * (ABNORMAL) Vaginitis panel Vaginal (03/12/2025 9:40 AM CDT) Pathologist [facility] Bacterial Vaginosis Detected(A) Not Detected Comment:The BV organism targ ets of this test can be commensal in women; results should be considered in conjunction with clinical presentation to determine the disease status. Cheryl group Detected(A) Not Detected [facility] Comment:Cheryl species can be present as commensal organisms in women; results should be considered in conjunction with clinical presentation to determine the disease status. Cheryl glabrata/ krusei Not Detected Not Detected [facility] Trichomonas DNA Detected(A) Not Detected [facility] Vaginal 03/12/2025 9:40 AM CDT 03/12/2025 9:42 AM CDT Narrative [facility] - 03/12/2025 10:47 AM CDT The [employer] ([employer] Xpert Xpress MVP test detects DNA targets [...] this test have been verified by the [facility]. The [employer] Xpert Xpress MVP test detects DNA targets [...] This test has been cleared by the [facility] Food and Drug Administration to aid in the diagnosis of vaginal infections in symptomatic women ages 14 and older. The performance characteristics of this test have been verified by the [facility]. Janny VU LAB MICROBIOLOGY - GENERAL OR DERABLES Final Result [facility] [address] [facility] Department [place] [address] * (ABNORMAL) POCT hCG, urine (03/12/2025 7:54 [...] tendency for uric acid stone formation. Source: [facility] Current Interpretive Data was last revised on 2017 Protein, ur ql Negative Negative [facility] Glucose, ur ql Negative Negative [facility] Ketones, ur Negative Negative [facility] Bilirubin, ur Negative Negative [facility] Blood, ur 2+(A) Negative [facility] Urobilinogen, ur <2.0 <2.0 mg/dL [facility] Nitrite, ur Negative Negative [facility] Leukocyte esterase, ur 2+(A) Negative [facility] UA reflex comment Reflex to microscopic UA will be performed. [facility] Urine 03/12/2025 7:53 AM CDT 03/12/2025 7:57 AM CDT Ariel Gao DO LAB MICROBIOLOGY - GENERAL ORDERABLES Final Result Performing Organization Address [facility] Co de Phone Number [address] [place] [address] * Urinalysis, microscopic only (03/12/2025 7:53 AM CDT) WBC, ur 0-5 0 - 5 /HPF RBC, ur 0-2 0 - 2 /HPF [facility] Epithelial cells, squamous, ur 1-5 0 - 5 /HPF [facility] Culture Reflex Comment Reflex conditions for urine culture (WBC >10) not met. [facility] Urine 03/12/2025 7:53 AM CDT 03/12/2025 7:57 AM CDT Ariel Gao DO LAB URINE ORDERABLES Final Result Performing Organization Address City/[facility] Co de Phone Number [address] [place] [address] * eGFR (03/12/2025 7:47 AM CDT) eGFR [...] DO LAB BLOOD ORDERABLES Final Result [facility] [address] [facility] Department of Laboratories [place], [place] [id number] * Differential, auto (03/12/2025 7:47 AM CDT) Neutrophil abs 4.60 1.50 - 6.50 K/cumm Imm gran abs 0.03 0.00 - 0.10 K/cumm [facility] Lymphocyte abs 2.96 0.80 - 3.30 K/cumm [facility] Monocyte abs 0.48 0.20 - 0.80 K/cumm [facility] Eosinophil abs 0.09 0.00 - 0.50 K/cumm [facility] Basophil abs 0.05 0.00 - 0.10 K/cumm [facility] Neutrophil pct 56.0 % [facility] Comment: Interpretive Data Percent cell count reference ranges are not reported, since discordance with absolute values may lead to misinterpretation of CBC data. Current Interpretive Data was last revised on 2017. Imm gran pct 0.4 % [facility] Comment: Interpretive Data Percent cell count reference ranges are not reported, since discordance with absolute values may lead to misinterpretation of CBC data. Current Interpretive Data was last revised on 2017. Lymphocyte pct 36.1 % [facility] Comment: Interpretive Data Percent cell count reference ranges are not reported, since discordance with absolute values may lead to misinterpretation of CBC data. Current Interpretive Data was last revised on 2017. Monocyte pct 5.8 % [facility] Comment: Interpretive Data Percent cell count reference ranges are not reported, since discordance with absolute values may lead to misinterpretation of CBC data. Current Interpretive Data was last revised on 2017. Eosinophil pct 1.1 % [facility] Comment: Interpretive Data Percent cell count reference ranges are not reported, since discordance with absolute values may lead to misinterpretation of CBC data. Current Interpretive Data was last revised on 2017. Basophil pct 0.6 % [facility] Comment: Interpretive Data Percent cell count reference ranges are not reported, since discordance with absolute values may lead to misinterpretation of CBC data. Current Interpretive Data was last revised on 2017. Blood 03/12/2025 7:47 AM CDT 03/12/2025 7:51 AM CDT us Ariel Gao DO LAB BLOOD ORDERABLES Final Result [place] [id number] [facility] Department [place] [address] * CBC with auto differential (03/12/2025 7:47 AM CDT) WBC 8.21 3.80 - 9.90 K/cumm Hgb 12.3 11.9 - 15.5 g/dL [facility] Hct 37.7 35.6 - 45.5 % [facility] Plt 218 150 - 400 K/cumm [facility] MPV 11.9 9.1 - 12.3 fL [facility] RBC 4.08 3.90 - 5.20 M/cumm [facility] MCV 92.4 81.3 - 96.4 fL [facility] MCH 30.1 27.1 - 33.3 pg [facility] MCHC 32.6 32.3 - 35.7 g/dL [facility] RDW CV 13.1 11.1 - 14.9 % [facility] RDW SD 44.3 35.7 - 48.1 fL [facility] NRBC abs 0.00 0.00 - 0.01 K/cumm [facility] Blood Venous blood specimen / Unknown 03/12/2025 7:47 AM CDT 03/12/2025 7:51 AM CDT Ariel Gao [facility] BLOOD ORDERABLES Final Result Performing Organization Address [facility] de Phone Number [address] [place] [address] * ABO/Rh (03/12/2025 7:47 AM CDT) ABO/Rh A Positive Blood 03/12/2025 7:47 AM CDT 03/12/2025 7:51 AM CDT Ariel Gao [facility] BLOOD BANK TEST ORDERAB LES Final Result Performing Organization Address [facility] de Phone Number [address] [address] * (ABNORMAL) hCG, blood, quantitative (03/12/2025 7:47 [...] CDT 03/12/2025 7:51 AM CDT Ariel Gao [facility] BLOOD ORDERABLES Final Result Performing Organization Address [facility] Co de Phone Number [address] [place] [address] * (ABNORMAL) Comprehensive metabolic panel (03/12/2025 7:47 AM CDT) Pathologist [facility] Sodium 135 135 - 145 mmol/L Potassium, pl 3.7 3.3 - 4.9 mmol/L [facility] Chloride 105 97 - 110 mmol/L [facility] CO2 22 22 - 32 mmol/L [facility] Anion gap 8 2 - 15 mmol/L [facility] BUN 7 6 - 25 mg/dL [facility] Creatinine 0.59(L) 0.60 - 1.10 mg/dL [facility] Glucose 96 70 - 199 mg/dL [facility] Comment: Interpretive Data Fasting glucose >/= [...] Calcium 8.6 8.5 - 10.3 mg/dL [facility] Bilirubin, total 0.4 0.1 - 1.2 mg/dL [facility] Protein, pl 6.4(L) 6.5 - 8.5 g/dL [facility] Albumin 4.0 3.5 - 5.0 g/dL [facility] Alk phos 58 40 - 130 Units/L [facility] ALT 16 7 - 45 Units/L [facility] AST 21 10 - 45 Units/L [facility] Blood 03/12/2025 7:47 AM CDT 03/12/2025 7:51 AM CDT us Ariel Gao DO LAB BLOOD ORDERABLES Final Result [facility] [address] [facility] Department [place] [address] * (ABNORMAL) hCG, blood, quantitative (03/09/2025 5:43 [...] last revised on 2023 Testing performed by: [facility], [address] [place] [address]., [id number] Blood 03/09/2025 5:43 PM CDT 03/09/2025 6:19 PM CDT us Kandy VU LAB BLOOD ORDERABLES Final Resu lt [facility] [address] [facility] Department [place] [address] * US Ob Transvaginal (03/07/2025 12:49 PM [...] 0.6 x 0.5 cm. Placenta: Not identified [place]-rump length: Small crown-rump length measuring 0.3 cm. [...] signed by John COLIN T: Report ID: [id number] Reading Location: [place] [address] Procedure Note John Herrera MD - 03/07/2025 [...] 0.6 x 0.5 cm. Placenta: Not identified [place]-rump length: Small crown-rump length measuring 0.3 cm. [...] signed by John COLIN T: Report ID: [id number] Reading Location: [place] [address] Kandy VU IMG OB US PROCEDURES Final Resu lt * ABO / Rh Confirmation Testing (03/07/2025 11:12 AM CDT) ABO/Rh Confirmation A Positive [facility] Blood 03/07/2025 11:1 2 AM CDT 03/07/2025 11:16 AM CDT Kandy VU LAB BLOOD ORDERABLES Final Resu lt [facility] [address] [facility] Department [place] [address] [facility] * (ABNORMAL) Urinalysis reflex [...] tendency for uric acid stone formation. Source: [facility] Current Interpretive Data was last revised on 2017 Protein, ur ql Negative Negative [facility] Glucose, ur ql Negative Negative [facility] Ketones, ur Negative Negative [facility] Bilirubin, ur Negative Negative [facility] Blood, ur Negative Negative [facility] Urobilinogen, ur <2.0 <2.0 mg/dL [facility] Nitrite, ur Negative Negative [facility] Leukocyte esterase, ur 2+(A) Negative [facility] UA reflex comment Reflex to microscopic UA will be performed. [facility] Urine 03/07/2025 10:5 1 AM CDT 03/07/2025 10:56 AM CDT Kandy VU LAB MICROBIOLOGY - GENERAL ORDE RABLES Final Result Performing Organization Address [facility] de Phone Number [address] [place] [address] * (ABNORMAL) Urinalysis, microscopic only (03/07/2025 10:51 AM CDT) WBC, ur 11-20(A) 0 - 5 /HPF RBC, ur 0-2 0 - 2 /HPF [facility] Epithelial cells, squamous, ur 1-5 0 - 5 /HPF [facility] Bacteria, ur Trace(A) [facility] Mucous, ur Present(A) [facility] Culture Reflex Comment Reflex to urine culture will be performed. [facility] Urine 03/07/2025 10:5 1 AM CDT 03/07/2025 10:56 AM CDT Kandy VU LAB URINE ORDERABLES Final Resu lt Performing Organization Address City/[facility] Co de Phone Number [address] [facility] [place] [address] * Urine culture Urine (03/07/2025 10:51 AM CDT) Report Final Report: Less than 100,000 colonies/mL (clinically insignificant growth based on current clinical standards) Comment:Testing performed by : [facility], [address] [facility], [place]., [address] Organism (CLINICALLY INSIGNIFICANT GROWTH [facility] Urine 03/07/2025 10:5 1 AM CDT 03/07/2025 6:19 PM CDT Narrative [facility] - 03/08/2025 7:25 PM CDT Urine culture reflexed based upon urinalysis results. Testing performed by [facility] Microbiology Laboratory ([phone]) Kandy VU LAB MICROBIOLOGY - GENERAL ORDE RABLES Final Result Performing Organization Address City/[facility]/ZIP Co de Phone Number [address] [place] [address] * eGFR (03/07/2025 10:06 AM CDT) Pathologist [...] ORDERABLES Final Resu lt Performing Organization Address City/[facility]/ZIP Co de Phone Number [facility] Department [place] [address] * Differential, auto (03/07/2025 10:06 AM CDT) Neutrophil abs 4.39 1.50 - 6.50 K/cumm Imm gran abs 0.01 0.00 - 0.10 K/cumm [facility] Lymphocyte abs 3.30 0.80 - 3.30 K/cumm [facility] Monocyte abs 0.48 0.20 - 0.80 K/cumm [facility] Eosinophil abs 0.06 0.00 - 0.50 K/cumm [facility] Basophil abs 0.05 0.00 - 0.10 K/cumm [facility] Neutrophil pct 53.0 % [facility] Comment: Interpretive Data Percent cell count reference ranges are not reported, since discordance with absolute values may lead to misinterpretation of CBC data. Current Interpretive Data was last revised on 2017. Imm gran pct 0.1 % [facility] Comment: Interpretive Data Percent cell count reference ranges are not reported, since discordance with absolute values may lead to misinterpretation of CBC data. Current Interpretive Data was last revised on 2017. Lymphocyte pct 39.8 % [facility] Comment: Interpretive Data Percent cell count reference ranges are not reported, since discordance with absolute values may lead to misinterpretation of CBC data. Current Interpretive Data was last revised on 2017. Monocyte pct 5.8 % [facility] Comment: Interpretive Data Percent cell count reference ranges are not reported, since discordance with absolute values may lead to misinterpretation of CBC data. Current Interpretive Data was last revised on 2017. Eosinophil pct 0.7 % [facility] Comment: Interpretive Data Percent cell count reference ranges are not reported, since discordance with absolute values may lead to misinterpretation of CBC data. Current Interpretive Data was last revised on 2017. Basophil pct 0.6 % [facility] Comment: Interpretive Data Percent cell count reference ranges are not reported, since discordance with absolute values may lead to misinterpretation of CBC data. Current Interpretive Data was last revised on 2017. Blood 03/07/2025 10:0 6 AM CDT 03/07/2025 10:11 AM CDT Kandy VU LAB BLOOD ORDERABLES Final Resu lt [address] [place] [address] * CBC with auto differential (03/07/2025 10:06 AM CDT) WBC 8.29 3.80 - 9.90 K/cumm Hgb 13.0 11.9 - 15.5 g/dL [facility] Hct 39.5 35.6 - 45.5 % [facility] Plt 242 150 - 400 K/cumm [facility] MPV 11.9 9.1 - 12.3 fL [facility] RBC 4.31 3.90 - 5.20 M/cumm [facility] MCV 91.6 81.3 - 96.4 fL [facility] MCH 30.2 27.1 - 33.3 pg [facility] MCHC 32.9 32.3 - 35.7 g/dL [facility] RDW CV 13.1 11.1 - 14.9 % [facility] RDW SD 44.0 35.7 - 48.1 fL [facility] NRBC abs 0.00 0.00 - 0.01 K/cumm [facility] Blood 03/07/2025 10:0 6 AM CDT 03/07/2025 10:11 AM CDT us Kandy VU LAB BLOOD ORDERABLES Final Resu lt Performing Organization Address City/[facility]/ZIP Co de Phone Number [address] [address] * ABO/Rh (03/07/2025 10:06 AM CDT) Pathologist [facility] ABO/Rh A Positive Blood 03/07/2025 10:0 6 AM CDT 03/07/2025 10:11 AM CDT us Kandy VU LAB BLOOD BANK TEST ORDERABLES Final Result Performing Organization Address City/[facility]/ZIP Co de Phone Number [address] [place] [address] * (ABNORMAL) hCG, blood, quantitative (03/07/2025 10:06 [...] LAB BLOOD ORDERABLES Final Resu lt [facility] [address] [facility] Department [place] [address] * (ABNORMAL) Comprehensive metabolic panel (03/07/2025 10:06 AM CDT) Pathologist [facility] Sodium 135 135 - 145 mmol/L Potassium, pl 3.8 3.3 - 4.9 mmol/L [facility] Chloride 104 97 - 110 mmol/L [facility] CO2 21(L) 22 - 32 mmol/L [facility] Anion gap 10 2 - 15 mmol/L [facility] BUN 9 6 - 25 mg/dL [facility] Creatinine 0.64 0.60 - 1.10 mg/dL [facility] Glucose 92 70 - 199 mg/dL [facility] Comment: Interpretive Data Fasting glucose >/= [...] Calcium 9.2 8.5 - 10.3 mg/dL [facility] Bilirubin, total 0.5 0.1 - 1.2 mg/dL [facility] Protein, pl 7.1 6.5 - 8.5 g/dL [facility] Albumin 4.3 3.5 - 5.0 g/dL [facility] Alk phos 64 40 - 130 Units/L [facility] ALT 15 7 - 45 Units/L [facility] AST 22 10 - 45 Units/L [facility] Blood 03/07/2025 10:0 6 AM CDT 03/07/2025 10:11 AM CDT us Kandy VU LAB BLOOD ORDERABLES Final Resu lt [facility] [place] [address] [facility] Department [place] [address] from Last 3 Months Insurance Care Teams Regional Facilities Manager Relationship Specialty Start Date End Date No, Physician PCP - General 12/15/23
[2025-04-20 16:57] LABS: Beta HCG Quantitative 53266.00 mIU/ML
--- NOTE | 2025-04-20 17:49 | ED_ITS ---
HPI - General Adult General Chief complaint: Vaginal Bleeding Stated complaint: 12 weeks , vaginal bleeding Time Seen by Provider: 04/20/25 15:59 19-year-old female 12 weeks presenting with vaginal bleeding. Patient states she was using the restroom this morning and then began bleeding profusely reporting she passed 2 small clots. She denies abdominal cramping, headache, fevers/chills, dysuria. Sees a Dr. Peacock at [facility] in [place] for OBGYN. Patient states that she went to the hospital in [place] this morning and underwent a pelvic exam which she states they reported her cervix was dilated. She reports that they did not obtain heart tones but that she has a Doppler at home that demonstrated continued heart tones. She states that she was told to go to another hospital to have her cervix closed. Patient has a significant history of spontaneous in early . Review of Systems 2 Review of Systems: All systems reviewed & are unremarkable except as noted in HPI and below Exam 2 Narrative: GENERAL: Well-appearing, well-nourished, and in no acute distress. HEAD: Normocephalic, atraumatic. EYES: PERRLA and EOMI. ENT: Nares clear, no rhinorrhea or epistaxis. Mucous membranes moist. Oropharynx without tonsillar hypertrophy exudate or other lesions. Bilateral TMs pearly house non-bulging NECK: Supple. No adenopathy or masses. No carotid bruits or JVD CHEST: Clear to auscultation. No respiratory distress. No wheezes rales or rhonchi HEART: Regular rate and rhythm. No murmur heard. Normal peripheral pulses. ABDOMEN: Soft, nontender, nondistended, normal active bowel sounds. EXTREMITIES: Normal range of motion. No edema. SKIN: Warm, dry, no rash. NEURO: No focal deficits. Alert and oriented x3. PSYCH: Normal mood and affect Course Vital Signs Vital signs: Vital Signs Temperature 97.6 F 04/20/25 12:57 Pulse Rate 108 H 04/20/25 12:57 Respiratory Rate 20 04/20/25 12:57 Blood Pressure 125/68 04/20/25 12:57 Pulse Oximetry 100 04/20/25 12:57 Oxygen Delivery Room Air 04/20/25 12:57 Temperature 97.6 F 04/20/25 12:57 Pulse Rate 53 L 04/20/25 13:28 Respiratory Rate 16 04/20/25 13:28 Blood Pressure 120/72 04/20/25 13:28 Pulse Oximetry 100 04/20/25 17:45 Oxygen Delivery Room Air 04/20/25 12:57 Medical Decision Making MDM Narrative Medical decision making narrative: 19-year-old female 12 weeks presenting with vaginal bleeding. Patient states she was using the restroom this morning and then began bleeding profusely reporting she passed 2 small clots. She denies abdominal cramping, headache, fevers/chills, dysuria. Sees a Dr. Peacock at [facility] in [place] for OBGYN. Patient states that she went to the hospital in [place] this morning and underwent a pelvic exam which she states they reported her cervix was dilated. She reports that they did not obtain heart tones but that she has a Doppler at home that demonstrated continued heart tones. She states that she was told to go to another hospital to have her cervix closed. Patient has a significant history of spontaneous in early . Transabdominal ultrasound demonstrated a single live intrauterine and no acute process was identified. HR 159. Called patient's on-call provider who then requested consulting OBGYN here. Spoke with gerontological nurse practitioner OBGYN Dr. Mcnally who endorsed that as long as the patient is hemodynamically stable she can be discharged with close follow-up with her OB as well as patient education on indications to return. Lab work WNL. Stable vitals. No gross uterine bleeding entire visit. Patient verbalized understanding and was comfortable with discharge home. Medical Records Medical records reviewed: Yes I reviewed the external patient's medical records. Vital Signs Vital Signs: Vital Signs Temperature 97.6 F 04/20/25 12:57 Pulse Rate 108 H 04/20/25 12:57 Respiratory Rate 20 04/20/25 12:57 Blood Pressure 125/68 04/20/25 12:57 Pulse Oximetry 100 04/20/25 12:57 Oxygen Delivery Room Air 04/20/25 12:57 Temperature 97.6 F 04/20/25 12:57 Pulse Rate 53 L 04/20/25 13:28 Respiratory Rate 16 04/20/25 13:28 Blood Pressure 120/72 04/20/25 13:28 Pulse Oximetry 100 04/20/25 17:45 Oxygen Delivery Room Air 04/20/25 12:57 Lab Data Lab results reviewed: Yes I reviewed the patient's lab results. 04/20/25 15:50 04/20/25 15:50 Labs: Lab Results 04/20/25 04/20/25 Range/Units 15:50 15:56 WBC 11.1 H (4.5-10.0) K/mm3 RBC 4.04 L (4.2-5.4) M/mm3 Hgb 12.2 (12.0-15.0) g/dL Hct 36.7 L (37.0-47.0) % MCV 90.8 (80-100) fl MCH 30.2 (26-34) pg MCHC 33.2 (32-36) g/dl RDW 13.2 (11.5-14.5) % Plt Count 222 (150-375) k/mm3 MPV 12.3 H (7.4-10.4) fl Immature Gran % (Auto) 0.4 (0-0.5) % Neut % (Auto) 57.3 (45.5-73.1) % Lymph % (Auto) 34.2 (18.3-44.2) % [place] % (Auto) 6.5 (2.6-8.5) % Eos % (Auto) 1.2 (0-4.4) % Baso % (Auto) 0.4 (0.2-1.2) % Lymph # (Auto) 3.80 H (0.9-3.2) K/mm3 [place] # (Auto) 0.7 H (0.1-0.6) K/mm3 Eos # (Auto) 0.1 (0-0.3) K/mm3 Baso # (Auto) 0.0 (0.0-0.1) K/mm3 Abs Immat Gran (auto) 0.05 H (0.00-0.031) K/mm3 Absolute Neuts (auto) 6.4 (1.3-6.7) K/mm3 Absolute Nucleated RBC 0.000 (0.0-0.012) K/mm3 Nucleated RBC % 0.0 (0.0-0.2) % Sodium 134 L (137-145) mmol/L Potassium 3.5 (3.4-5.0) mmol/L Chloride 106 (98-107) mmol/L Carbon Dioxide 22 (22-30) mmol/L Anion Gap 6 (4-12) mmol/L BUN 6 L (7-17) mg/dL Creatinine 0.54 L (0.7-1.0) mg/dL Estim Creat Clear Calc 156 ml/min Estimated GFR > 60 (59 - ) Glucose 74 (65-110) mg/dL Calcium 8.9 (8.4-10.2) mg/dL Total Bilirubin 0.3 (0.2-1.3) mg/dL AST 32 (14-36) U/L ALT 17 (6-35) U/L Alkaline Phosphatase 59 (38-126) U/L Total Protein 6.9 (6.3-8.2) g/dL Albumin 3.9 (3.5-5.1) g/dL Beta HCG, Quant 04457.00 mIU/ML Urine Color Yellow (Yellow) Urine Appearance Clear (Clear) Urine pH 7.0 (5.0-9.0) Ur Specific [place] 1.009 (1.001-1.035) Urine Protein Negative (Negative) mg/dL Urine Glucose (UA) Negative (Negative) mg/dL Urine Ketones 1+ H (Negative) mg/dL Ur Blood (Man) 2+ H (Negative) Urine Nitrate Negative (Negative) Urine Bilirubin Negative (Negative) Urine Urobilinogen 0.2 (<2.0) mg/dL Leukocyte Esterase Rfl Negative (Negative) ANNA/UL Urine RBC 0-2 (0-2) /hpf Urine WBC 0-5 (0-3) /hpf Ur Squamous Epith Cells Occasional (Few) /hpf Urine Bacteria None seen /hpf Urine Casts 0-2 POC Urine HCG, Qual Positive (Negative) Blood Type A Positive Antibody Screen Negative Imaging Data Attestation: I personally reviewed and interpreted this imaging study as follows: Radiologist's impression: ITS Impressions Ultrasound 04/20/25 17:50 IMPRESSION: Single live intrauterine detailed above. No acute process is identified. Critical Care Time Critical Care Time Critical Care Time: No Discharge Plan Discharge Clinical Impression: Threatened Patient Disposition: Home Condition: Stable Instructions: Threatened Miscarriage (ED) Additional Instructions: Rest as much as possible over the next few days. Avoid heavy lifting, strenuous activity, or sexual intercourse until cleared by your OB provider. Avoid inserting anything into the vagina (no tampons, douching, or intercourse). Go to the nearest ER if you are experiencing heavy vaginal bleeding (soaking more than 2 pads per hour or passing large clots), severe abdominal/pelvic pain, fevers/chills, foul-smelling discharge, dizziness, weakness, or fluid leakage or passage of tissue. Follow-up with your OBGYN for further workup and treatment. Patient Language: Korean Follow-up/Referrals: PHYSICIAN,INTENSIVE CARE SPECIALIST [Primary Care Provider, Internal Medicine]
== END 2025-04-20 18:50 | disposition home or self-care (01) ==
PROVIDERS: Student in an Organized Health Care Education/Training Program
DX: O20.0 Threatened abortion (principal); Z3A.12 12 weeks gestation of pregnancy
CPT/HCPCS: 36415; 76801; 80053; 81001; 81025; 84702; 85025; 86850; 86900; 86901; 99284